=== PATIENT | male | born 1940 | race Caucasian/White ===

== ENCOUNTER 2018-02-11 11:30 | Outpatient (RCR) | payer OTHER, SELFPAY ==
[2017-10-16 11:02] VITALS: BP 188/74; BP 192/80; O2SAT 97; BMI 37.8
[2017-11-14 15:46] VITALS: BP 136/58
[2017-12-06 15:17] VITALS: BP 148/68
--- NOTE | 2018-01-10 15:48 | CR.REVALNOTE ---
Current Diagnoses Presence of prosthetic heart valve (01/10/18) Provider Summary Visit Care Team Role Provider Type Gabriele Nuno MD Family Provider Physician Specialty: Family Practice Address: [facility] [address], [place], [address] Email: Aries Velarde DO Attending Provider Non-Staff Specialty: Cardiology Address: [facility] [address], [place], [address] Email: CR Re-Evaluation Report 01.10.18 CFS- Today is Flynn's first day back after a month long vacation to [place]. States he wasn't able to do a whole lot of exercise as he was mainly there to help his sister out. Would like to keep the exercise Rx the same as last assessment since he hasn't been here since the last assessment. Equipment Goals TM 6.0 NS 6.0 weights Number/Value n/a LVL lvl 5 teal Progress to Goal increase as tolerated CFS-CEP CR Cardiac Rehab Re-Assessment Start: 10/16/17 11:02 Freq: Status: Active Protocol: Document 11/08/17 12:20 SHEREE (Rec: 11/08/17 12:23 SHEREE [id number]) CARDIAC REHAB EXERCISE RISK RE-EVAL Dx: TAVR 09/25/17 Risk Moderate Heart Rhythm SR 1ST DEGREE AVB CARDIAC REHAB NUTRITION RE-EVAL Lipids Re-Drawn No History of Diabetes Yes Oral Agents ACTOS Monitored Blood Glucose No Progress to Weight Goal HAS NO WEIGHT GOAL Dietary Goal verbalized by Patient Yes: HAS NO GOAL, NOT GOING TO CHANGE DIET EDUCATION Tobacco Use N/A Hypertension 136/58 PRE Medications LISINOPRIL 5MG QD Progress to Goal IS HAPPY WITH SELF. NOT AT GOAL PRE-EXERCISE BUT BETTER THAN ON INTAKE Medication Reconciled NO CHANGES REPORTED CR PSYCHOSOCIAL RE-EVALUATION Progress to Goal IS HAPPY WITH SELF. IS HERE BECAUSE HIS DOCTOR TOLD HIM TO Stress Managed PER PT, YES Psych Consult No Coping Techniques Yes Note NO CHANGES CR PSYCHOSOCIAL PROVIDER EVAL Treatment Prescribed for Individual Yes Needs No Treatment Change Yes: Please Continue with Cardiopulmonary Rehabilitation as Ordered Date 11/08/17 Document 11/14/17 15:46 CFS (Rec: 11/14/17 15:59 CFS [id number]) CARDIAC REHAB EXERCISE RISK RE-EVAL Left Arm Blood Pressure (90/60-140/90 mmHg) 136/58 L Blood Pressure Method Manual Cuff/Auscultation Apical Resting Heart Rate: 73 Target Heart Rate: 110 Angina with Exercise no CR LIFESTYLE RE-ASSESSMENT Home Exercise Yes Mode Comment walking Duration Comment 20-25 min Frequency Comment daily ACHIEVED EXERCISE RE-EVALUATION Nustep MET Goal 4.27 Treadmill MET Goal 4.98 RPE n/a Weights n/a Bands lvl 4 Equipment Goals TM 6.0 NS 6.0 Number/Value n/a LVL lvl 5 teal Progress to Goal increase as tolerated % Improvement TM 32% Short Term has no problem exercising for 40 min continuously. Has not achieved 6+ METs but will continue to push him to increase METs (incline on TM and speed on NS). 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 We will give it a few more sessions before really pushing to see high METs. He has started helping set up large tents but has not used the sledge hammer to help drive stakes in. Document 12/06/17 15:17 [facility] (Rec: 12/06/17 15:25 [facility] [id number]) CARDIAC REHAB EXERCISE RISK RE-EVAL Dx: TAVR 7.31.18 Risk Moderate Heart Rhythm NSR W/1ST DEGREE AVB Right Arm Blood Pressure (90/60-140/90 mmHg) 148/68 H Apical Resting Heart Rate: 69 CARDIAC REHAB NUTRITION RE-EVAL Lipids Re-Drawn No History of Diabetes Yes Oral Agents ACTOS Monitored Blood Glucose No Progress to Weight Goal HAS NOT PROGRESSED Dietary Consult Yes EDUCATION Hypertension 148/68 PRE 128/62 POST Medications LISINOPRIL Progress to Goal HIGH ON MEDS CR PSYCHOSOCIAL RE-EVALUATION Progress to Goal COMES IN 1X/WEEK AND SEEMS SATISFIED WITH HIS PROGRESS Psych Consult No Coping Techniques Yes Note NO CHANGES CR PSYCHOSOCIAL PROVIDER EVAL Treatment Prescribed for Individual Yes Needs No Treatment Change Yes: Please Continue with Cardiopulmonary Rehabilitation as Ordered Date 12/06/17 Document 12/06/17 15:31 CFS (Rec: 12/06/17 15:34 CFS [id number]) CARDIAC REHAB EXERCISE RISK RE-EVAL Angina with Exercise none CR LIFESTYLE RE-ASSESSMENT Home Exercise Yes Mode Comment walking Duration Comment 20-25 min Frequency Comment daily ACHIEVED EXERCISE RE-EVALUATION BioDex MET Goal 3.37 Nustep MET Goal 5.19 Treadmill MET Goal 5.86 RPE 14-15 Weights n/a Bands lvl 5 Equipment Goals TM 6.75 NS 6.25 BD 4.50 Number/Value N/A LVL Lvl 6 Progress to Goal increase as tolerated % Improvement TM 18% NS 22% Short Term has no problem exercising for 40 min continuously. Has not achieved 6+ METs but will continue to push him to increase METs (incline on TM and speed on NS). Half-Way Has not come close to PATINO score of 9.89. We will give it a few more sessions before really pushing to see high METs. He has started helping set up large tents but has not used the sledge hammer to help drive stakes in. CR Education Start: 10/16/17 11:02 Freq: Status: Active Protocol: Document 11/15/17 14:49 TOD (Rec: 11/15/17 14:49 [facility] [id number]) CR EDUCATION Education discussed hiit exercising and working up to this at home Document 12/06/17 11:59 BAR (Rec: 12/06/17 11:59 [facility] [id number]) CR EDUCATION Education reviewed medications
[2018-02-14 07:51] VITALS: BP 148/60
== END 2018-02-21 09:43 ==
LOC: CAR 11:30
PROVIDERS: Family Provider Family Medicine; Visit Provider Internal Medicine Interventional Cardiology
DX: Z95.2 Presence of prosthetic heart valve (principal)
CPT/HCPCS: 93798

== ENCOUNTER → 2020-08-25 11:09 | Outpatient (CLI) | payer MEDICARE, SELFPAY | PROVIDERS: Family Provider Family Medicine; PCP Family Medicine; Referring Provider Orthopaedic Surgery; Visit Provider Orthopaedic Surgery | DX: M79.644 Pain in right finger(s) (principal); Z53.8 Procedure and treatment not carried out for other reasons ==

== ENCOUNTER → 2021-01-17 11:28 | Outpatient (CLI) | payer MEDICARE, SELFPAY ==
[2021-01-17 19:51] LABS: Add Manual Diff / Slide Review NO; Basophils Absolute Auto 0 /uL (0-100); Basophils Percent Auto 0.7 % (0-2); Eosinophils Absolute Auto 200 /uL (0-450); Eosinophils Percent Auto 4.3 % (2-4); Hematocrit 29.6 % (41-53); Hemoglobin 9.8 g/dL (13.5-17.5); Lymphocytes Absolute Auto 1100 /uL (1100-4500); Lymphocytes Percent Auto 29.3 % (25-40); Mean Corpuscular HGB Conc 33.1 % (30-36); Mean Corpuscular Hemoglobin 32.5 PG (26-34); Mean Corpuscular Volume 98.3 fL (80-100); Monocytes Absolute Auto 400 /uL (0-900); Neutrophils Absolute Auto 2200 /uL (1500-7000); Neutrophils Percent Auto 55.7 % (50-75); Platelet Count 179 X10^3/uL (150-400); Red Blood Cell Count 3.01 X10^6/uL (4.5-5.9); Red Cell Distribution Width 14.6 % (11.6-14.8); White Blood Cell Count 3.9 X10^3/uL (4.5-11.0)
[2021-01-17 20:19] LABS: HEMOLYSIS < 15 (0-50); Iron 100 ug/dL (49-181)
[2021-01-17 20:24] LABS: Alanine Aminotransferase 21 IU/L (<50); Albumin 4.1 g/dL (3.5-5.0); Albumin Globulin Ratio 1.3 (1.0-2.8); Alkaline Phosphatase 76 U/L (38-126); Aspartate Aminotransferase 45 IU/L (17-59); BUN Creatinine Ratio 20.4 (6-22); Bilirubin Total 0.4 mg/dL (0.2-1.3); Blood Urea Nitrogen 19 mg/dL (9-20); Calcium 8.9 mg/dL (8.4-10.2); Carbon Dioxide 21 mmol/L (22-32); Chloride 107 mmol/L (98-107); Cholesterol 150 mg/dL (140-199); Estimated Glomerular Filt Rate > 60.0 mL/min (>60); Globulin 3.2 g/dL (1.7-4.1); Glucose 105 mg/dL (80-110); HDL Cholesterol 50 mg/dL (40-60); HEMOLYSIS < 15 (0-50); LDL Cholesterol Calculated 70 mg/dL (<100); Potassium 4.6 mmol/L (3.4-5.1); Sodium 137 mmol/L (137-145); Total Protein 7.3 g/dL (6.3-8.2); Triglycerides 151 mg/dL (35-150)
[2021-01-17 20:35] LABS: Percent Iron Saturation 34 % (20-50); Total Iron Binding Capacity 290 ug/dL (261-462); Transferrin 222 mg/dL (206-381)
[2021-01-17 20:59] LABS: Ferritin 85 ng/mL (18-464)
[2021-01-17 21:13] LABS: Vitamin B12 577 pg/mL (239-931)
== END ==
PROVIDERS: Family Provider Family Medicine; PCP Family Medicine; Referring Provider Family Medicine; Visit Provider Family Medicine
DX: D64.9 Anemia, unspecified (principal); E11.9 Type 2 diabetes mellitus without complications; E53.8 Deficiency of other specified B group vitamins; E66.01 Morbid (severe) obesity due to excess calories; E78.2 Mixed hyperlipidemia; I25.10 Atherosclerotic heart disease of native coronary artery without angina pectoris
CPT/HCPCS: 80053; 80061; 82607; 82728; 83036; 83540; 83550; 85025

== ENCOUNTER → 2021-04-28 08:08 | Outpatient (CLI) | payer MEDICARE, SELFPAY ==
[2021-04-28 20:23] LABS: Hemoglobin A1C% w Est Avg Glu 6.4 % (4.0-6.0)
[2021-04-28 20:32] LABS: Add Manual Diff / Slide Review NO; Basophils Absolute Auto 100 /uL (0-100); Eosinophils Absolute Auto 300 /uL (0-450); Eosinophils Percent Auto 6.3 % (2-4); Hematocrit 31.1 % (41-53); Hemoglobin 10.4 g/dL (13.5-17.5); Lymphocytes Absolute Auto 1200 /uL (1100-4500); Mean Corpuscular HGB Conc 33.3 % (30-36); Mean Corpuscular Hemoglobin 32.1 PG (26-34); Mean Corpuscular Volume 96.4 fL (80-100); Monocytes Absolute Auto 500 /uL (0-900); Monocytes Percent Auto 10.7 % (3-14); Neutrophils Absolute Auto 2800 /uL (1500-7000); Platelet Count 187 X10^3/uL (150-400); Red Blood Cell Count 3.22 X10^6/uL (4.5-5.9); Red Cell Distribution Width 13.7 % (11.6-14.8); White Blood Cell Count 4.9 X10^3/uL (4.5-11.0)
[2021-04-28 20:35] LABS: Alanine Aminotransferase 29 IU/L (<50); Albumin Globulin Ratio 1.2 (1.0-2.8); Alkaline Phosphatase 78 U/L (38-126); Aspartate Aminotransferase 39 IU/L (17-59); BUN Creatinine Ratio 19.4 (6-22); Bilirubin Total 0.4 mg/dL (0.2-1.3); Blood Urea Nitrogen 19 mg/dL (9-20); Carbon Dioxide 25 mmol/L (22-32); Chloride 109 mmol/L (98-107); Cholesterol 200 mg/dL (140-199); Estimated Glomerular Filt Rate > 60.0 mL/min (>60); Globulin 3.4 g/dL (1.7-4.1); Glucose 114 mg/dL (80-110); HDL Cholesterol 38 mg/dL (40-60); HEMOLYSIS < 15 (0-50); LDL Cholesterol Calculated 114 mg/dL (<100); Potassium 4.4 mmol/L (3.4-5.1); Sodium 138 mmol/L (137-145); Total Protein 7.4 g/dL (6.3-8.2); Triglycerides 240 mg/dL (35-150)
== END ==
PROVIDERS: Family Provider Family Medicine; PCP Family Medicine; Visit Provider Family Medicine
DX: D64.9 Anemia, unspecified (principal); E11.9 Type 2 diabetes mellitus without complications; E78.5 Hyperlipidemia, unspecified; I25.10 Atherosclerotic heart disease of native coronary artery without angina pectoris
CPT/HCPCS: 80053; 80061; 83036; 85025

== ENCOUNTER → 2021-09-27 09:13 | Outpatient (CLI) | payer MEDICARE, SELFPAY ==
[2021-09-27 20:25] LABS: HEMOLYSIS < 15 (0-50); Iron 101 ug/dL (49-181)
[2021-09-27 20:30] LABS: Hemoglobin A1C% w Est Avg Glu 6.4 % (4.0-6.0)
[2021-09-27 20:40] LABS: Percent Iron Saturation 36 % (20-50); Total Iron Binding Capacity 281 ug/dL (261-462); Transferrin 211 mg/dL (206-381)
[2021-09-28 01:00] LABS: Alanine Aminotransferase 21 IU/L (<50); Albumin 3.8 g/dL (3.5-5.0); Albumin Globulin Ratio 1.2 (1.0-2.8); Alkaline Phosphatase 77 U/L (38-126); Aspartate Aminotransferase 32 IU/L (17-59); BUN Creatinine Ratio 21.9 (6-22); Bilirubin Total 0.3 mg/dL (0.2-1.3); Blood Urea Nitrogen 23 mg/dL (9-20); Calcium 8.6 mg/dL (8.4-10.2); Carbon Dioxide 20 mmol/L (22-32); Chloride 110 mmol/L (98-107); Cholesterol 184 mg/dL (140-199); Estimated Glomerular Filt Rate > 60 mL/min (>60); Globulin 3.1 g/dL (1.7-4.1); Glucose 107 mg/dL (80-110); HDL Cholesterol 36 mg/dL (40-60); HEMOLYSIS < 15 (0-50); LDL Cholesterol Calculated 95 mg/dL (<100); Potassium 5.1 mmol/L (3.4-5.1); Sodium 138 mmol/L (137-145); Total Protein 6.9 g/dL (6.3-8.2); Triglycerides 266 mg/dL (35-150)
[2021-09-28 01:48] LABS: Vitamin B12 > 1000 pg/mL (239-931)
[2021-09-28 02:51] LABS: Free T4, Direct Thyroxine 0.77 ng/dL (0.78-2.19)
== END ==
PROVIDERS: Family Provider Family Medicine; PCP Family Medicine; Visit Provider Family Medicine
DX: E11.9 Type 2 diabetes mellitus without complications (principal); E78.2 Mixed hyperlipidemia; I25.10 Atherosclerotic heart disease of native coronary artery without angina pectoris
CPT/HCPCS: 80053; 80061; 82607; 83036; 83540; 83550; 84439; 84443

== ENCOUNTER → 2021-11-10 10:56 | Outpatient (CLI) | payer MEDICARE, SELFPAY ==
[2021-11-10 19:26] LABS: Alanine Aminotransferase 20 IU/L (<50); Albumin 3.7 g/dL (3.5-5.0); Albumin Globulin Ratio 1.2 (1.0-2.8); Alkaline Phosphatase 67 U/L (38-126); Aspartate Aminotransferase 31 IU/L (17-59); BUN Creatinine Ratio 23.9 (6-22); Bilirubin Total 0.3 mg/dL (0.2-1.3); Blood Urea Nitrogen 22 mg/dL (9-20); Calcium 8.9 mg/dL (8.4-10.2); Carbon Dioxide 23 mmol/L (22-32); Chloride 107 mmol/L (98-107); Estimated Glomerular Filt Rate > 60 mL/min (>60); Globulin 3.1 g/dL (1.7-4.1); Glucose 93 mg/dL (80-110); HEMOLYSIS < 15 (0-50); Sodium 140 mmol/L (137-145); Total Protein 6.8 g/dL (6.3-8.2)
[2021-11-10 19:58] LABS: Free T4, Direct Thyroxine 0.96 ng/dL (0.78-2.19)
[2021-11-10 20:12] LABS: Thyroid Stimulating Hormone 4.47 uIU/mL (0.47-4.68)
== END ==
PROVIDERS: Family Provider Family Medicine; PCP Family Medicine; Visit Provider Family Medicine
DX: E03.9 Hypothyroidism, unspecified (principal)
CPT/HCPCS: 80053; 84439; 84443

== ENCOUNTER → 2021-12-21 09:00 | Outpatient (CLI) | payer MEDICARE, SELFPAY ==
[2021-12-21 19:27] LABS: Add Manual Diff / Slide Review NO; Alanine Aminotransferase 27 IU/L (<50); Albumin Globulin Ratio 1.3 (1.0-2.8); Alkaline Phosphatase 75 U/L (38-126); Aspartate Aminotransferase 38 IU/L (17-59); BUN Creatinine Ratio 25.5 (6-22); Basophils Absolute Auto 0 /uL (0-100); Basophils Percent Auto 0.8 % (0-2); Bilirubin Total 0.3 mg/dL (0.2-1.3); Blood Urea Nitrogen 26 mg/dL (9-20); Calcium 8.9 mg/dL (8.4-10.2); Carbon Dioxide 24 mmol/L (22-32); Chloride 105 mmol/L (98-107); Cholesterol 120 mg/dL (140-199); Eosinophils Absolute Auto 200 /uL (0-450); Eosinophils Percent Auto 4.8 % (2-4); Estimated Glomerular Filt Rate > 60 mL/min (>60); Globulin 3.1 g/dL (1.7-4.1); Glucose 105 mg/dL (80-110); HDL Cholesterol 40 mg/dL (40-60); HEMOLYSIS < 15 (0-50); Hematocrit 29.3 % (41-53); LDL Cholesterol Calculated 49 mg/dL (<100); Lymphocytes Absolute Auto 1200 /uL (1100-4500); Lymphocytes Percent Auto 32.8 % (25-40); Mean Corpuscular HGB Conc 34.1 % (30-36); Mean Corpuscular Hemoglobin 32.7 PG (26-34); Mean Corpuscular Volume 95.8 fL (80-100); Monocytes Absolute Auto 400 /uL (0-900); Neutrophils Absolute Auto 1900 /uL (1500-7000); Neutrophils Percent Auto 51.6 % (50-75); Platelet Count 173 X10^3/uL (150-400); Potassium 4.6 mmol/L (3.4-5.1); Red Blood Cell Count 3.06 X10^6/uL (4.5-5.9); Sodium 139 mmol/L (137-145); Total Protein 7.1 g/dL (6.3-8.2); Triglycerides 155 mg/dL (35-150); White Blood Cell Count 3.7 X10^3/uL (4.5-11.0)
[2021-12-21 19:37] LABS: Hemoglobin A1C% w Est Avg Glu 5.7 % (4.0-6.0)
== END ==
PROVIDERS: Family Provider Family Medicine; PCP Family Medicine; Visit Provider Family Medicine
DX: E78.2 Mixed hyperlipidemia (principal); I10 Essential (primary) hypertension; I45.89 Other specified conduction disorders
CPT/HCPCS: 80053; 80061; 83036; 85025

== ENCOUNTER → 2022-03-30 08:58 | Outpatient (CLI) | payer MEDICARE, SELFPAY ==
[2022-03-31 08:07] LABS: Add Manual Diff / Slide Review NO; Basophils Absolute Auto 0 /uL (0-100); Basophils Percent Auto 0.6 % (0-2); Eosinophils Absolute Auto 200 /uL (0-450); Eosinophils Percent Auto 4.8 % (2-4); Hematocrit 28.7 % (41-53); Hemoglobin 9.8 g/dL (13.5-17.5); Lymphocytes Absolute Auto 1100 /uL (1100-4500); Lymphocytes Percent Auto 27.8 % (25-40); Mean Corpuscular HGB Conc 34.1 % (30-36); Mean Corpuscular Hemoglobin 32.5 PG (26-34); Mean Corpuscular Volume 95.3 fL (80-100); Monocytes Absolute Auto 400 /uL (0-900); Monocytes Percent Auto 10.5 % (3-14); Neutrophils Absolute Auto 2200 /uL (1500-7000); Neutrophils Percent Auto 56.3 % (50-75); Platelet Count 176 X10^3/uL (150-400); Red Blood Cell Count 3.01 X10^6/uL (4.5-5.9); Red Cell Distribution Width 15.1 % (11.6-14.8); White Blood Cell Count 3.8 X10^3/uL (4.5-11.0)
[2022-03-31 08:09] LABS: Alanine Aminotransferase 27 IU/L (<50); Albumin 3.8 g/dL (3.5-5.0); Albumin Globulin Ratio 1.2 (1.0-2.8); Alkaline Phosphatase 78 U/L (38-126); Aspartate Aminotransferase 39 IU/L (17-59); BUN Creatinine Ratio 24.7 (6-22); Bilirubin Total 0.5 mg/dL (0.2-1.3); Blood Urea Nitrogen 22 mg/dL (9-20); Calcium 8.6 mg/dL (8.4-10.2); Carbon Dioxide 22 mmol/L (22-32); Chloride 106 mmol/L (98-107); Estimated Glomerular Filt Rate > 60 mL/min (>60); Globulin 3.3 g/dL (1.7-4.1); Glucose 106 mg/dL (80-110); Potassium 4.5 mmol/L (3.4-5.1); Sodium 137 mmol/L (137-145); Total Protein 7.1 g/dL (6.3-8.2)
[2022-03-31 08:10] LABS: HEMOLYSIS < 15 (0-50); Iron 99 ug/dL (49-181)
[2022-03-31 08:20] LABS: Percent Iron Saturation 36 % (20-50); Total Iron Binding Capacity 275 ug/dL (261-462); Transferrin 197 mg/dL (206-381)
[2022-03-31 08:24] LABS: Free T4, Direct Thyroxine 0.89 ng/dL (0.78-2.19)
[2022-03-31 08:38] LABS: Thyroid Stimulating Hormone 7.69 uIU/mL (0.47-4.68)
[2022-03-31 12:14] LABS: HEMOLYSIS < 15 (0-50); Vitamin B12 > 1000 pg/mL (239-931)
== END ==
PROVIDERS: Family Provider Family Medicine; PCP Family Medicine; Visit Provider Family Medicine
DX: D64.9 Anemia, unspecified (principal); E03.9 Hypothyroidism, unspecified; E53.8 Deficiency of other specified B group vitamins; E78.5 Hyperlipidemia, unspecified; I10 Essential (primary) hypertension; I25.10 Atherosclerotic heart disease of native coronary artery without angina pectoris; Z79.02 Long term (current) use of antithrombotics/antiplatelets
CPT/HCPCS: 80053; 82607; 83540; 83550; 84439; 84443; 85025

== ENCOUNTER → 2022-08-21 10:26 | Outpatient (CLI) | payer MEDICARE, SELFPAY ==
[2022-08-21 19:33] LABS: Add Manual Diff / Slide Review NO; Basophils Absolute Auto 0 /uL (0-100); Basophils Percent Auto 0.9 % (0-2); Eosinophils Absolute Auto 100 /uL (0-450); Eosinophils Percent Auto 3.5 % (2-4); Hematocrit 28.1 % (41-53); Hemoglobin 9.6 g/dL (13.5-17.5); Lymphocytes Absolute Auto 1100 /uL (1100-4500); Lymphocytes Percent Auto 30.9 % (25-40); Mean Corpuscular HGB Conc 34.2 % (30-36); Mean Corpuscular Hemoglobin 33.2 PG (26-34); Mean Corpuscular Volume 96.8 fL (80-100); Monocytes Absolute Auto 400 /uL (0-900); Monocytes Percent Auto 10.8 % (3-14); Neutrophils Absolute Auto 2000 /uL (1500-7000); Neutrophils Percent Auto 53.9 % (50-75); Platelet Count 174 X10^3/uL (150-400); Red Cell Distribution Width 14.1 % (11.6-14.8); White Blood Cell Count 3.7 X10^3/uL (4.5-11.0)
[2022-08-21 19:37] LABS: Alanine Aminotransferase 28 IU/L (<50); Albumin 3.8 g/dL (3.5-5.0); Albumin Globulin Ratio 1.2 (1.0-2.8); Alkaline Phosphatase 80 U/L (38-126); Aspartate Aminotransferase 37 IU/L (17-59); BUN Creatinine Ratio 25.6 (6-22); Bilirubin Total 0.4 mg/dL (0.2-1.3); Blood Urea Nitrogen 23 mg/dL (9-20); Calcium 8.6 mg/dL (8.4-10.2); Carbon Dioxide 23 mmol/L (22-32); Chloride 107 mmol/L (98-107); Cholesterol 181 mg/dL (140-199); Estimated Glomerular Filt Rate > 60 mL/min (>60); Globulin 3.1 g/dL (1.7-4.1); Glucose 111 mg/dL (80-110); HDL Cholesterol 44 mg/dL (40-60); HEMOLYSIS < 15 (0-50); LDL Cholesterol Calculated 96 mg/dL (<100); Potassium 4.7 mmol/L (3.4-5.1); Sodium 136 mmol/L (137-145); Total Protein 6.9 g/dL (6.3-8.2); Triglycerides 205 mg/dL (35-150)
[2022-08-21 19:51] LABS: Free T4, Direct Thyroxine 1.14 ng/dL (0.78-2.19)
[2022-08-21 20:06] LABS: Thyroid Stimulating Hormone 5.72 uIU/mL (0.47-4.68)
[2022-08-23 03:27] LABS: x Labcorp Estim. Avg Glu (eAG) 128 mg/dL (.); x Labcorp Hemoglobin A1c 6.1 % (4.8-5.6)
== END ==
PROVIDERS: Family Provider Family Medicine; PCP Family Medicine; Visit Provider Family Medicine
DX: E11.9 Type 2 diabetes mellitus without complications (principal); E53.8 Deficiency of other specified B group vitamins; E78.5 Hyperlipidemia, unspecified; I10 Essential (primary) hypertension; E03.9 Hypothyroidism, unspecified
CPT/HCPCS: 80053; 80061; 83036; 84439; 84443; 85025

== ENCOUNTER → 2023-01-03 10:47 | Outpatient (CLI) | payer MEDICARE, SELFPAY ==
[2023-01-03 19:46] LABS: Add Manual Diff / Slide Review NO; Basophils Absolute Auto 0 /uL (0-100); Basophils Percent Auto 0.7 % (0-2); Eosinophils Absolute Auto 200 /uL (0-450); Eosinophils Percent Auto 5.7 % (2-4); Hemoglobin 9.5 g/dL (13.5-17.5); Lymphocytes Absolute Auto 1200 /uL (1100-4500); Lymphocytes Percent Auto 29.5 % (25-40); Mean Corpuscular Hemoglobin 33.1 PG (26-34); Mean Corpuscular Volume 97.2 fL (80-100); Monocytes Absolute Auto 400 /uL (0-900); Monocytes Percent Auto 10.4 % (3-14); Neutrophils Absolute Auto 2100 /uL (1500-7000); Neutrophils Percent Auto 53.7 % (50-75); Platelet Count 201 X10^3/uL (150-400); Red Blood Cell Count 2.88 X10^6/uL (4.5-5.9); Red Cell Distribution Width 14.5 % (11.6-14.8)
[2023-01-03 19:56] LABS: Alanine Aminotransferase 74 IU/L (<50); Albumin 3.9 g/dL (3.5-5.0); Albumin Globulin Ratio 1.2 (1.0-2.8); Alkaline Phosphatase 222 U/L (38-126); Aspartate Aminotransferase 74 IU/L (17-59); BUN Creatinine Ratio 18.4 (6-22); Bilirubin Total 0.6 mg/dL (0.2-1.3); Blood Urea Nitrogen 16 mg/dL (9-20); Calcium 9.1 mg/dL (8.4-10.2); Carbon Dioxide 22 mmol/L (22-32); Chloride 106 mmol/L (98-107); Estimated Glomerular Filt Rate > 60 mL/min (>60); Globulin 3.3 g/dL (1.7-4.1); Glucose 106 mg/dL (80-110); HEMOLYSIS < 15 (0-50); Potassium 5.1 mmol/L (3.4-5.1); Total Protein 7.2 g/dL (6.3-8.2)
[2023-01-03 19:59] LABS: Creatinine Urine Random 81.2 mg/dL; Free T4, Direct Thyroxine 1.27 ng/dL (0.78-2.19)
[2023-01-03 20:00] LABS: Hemoglobin A1C% w Est Avg Glu 6.2 % (4.0-6.0)
[2023-01-03 20:03] LABS: Microalbumi Creatinin Ratio Ur 41.8 ug/mg CR (<30); Microalbumin Urine Random 3.4 mg/dL (0-1.6)
[2023-01-03 20:12] LABS: Sodium 136 mmol/L (137-145)
[2023-01-03 20:14] LABS: Thyroid Stimulating Hormone 7.75 uIU/mL (0.47-4.68)
== END ==
PROVIDERS: Family Provider Family Medicine; PCP Family Medicine; Visit Provider Family Medicine
DX: I10 Essential (primary) hypertension (principal); E11.9 Type 2 diabetes mellitus without complications; E03.9 Hypothyroidism, unspecified; E78.5 Hyperlipidemia, unspecified
CPT/HCPCS: 80053; 82043; 82570; 83036; 84439; 84443; 85025

== ENCOUNTER → 2023-01-11 10:34 | Outpatient (CLI) | payer MEDICARE, SELFPAY ==
[2023-01-11 19:19] LABS: Reticulocyte Count, Percent 0.4 % (0.9-2.6)
[2023-01-11 19:24] LABS: Alanine Aminotransferase 66 IU/L (<50); Albumin Globulin Ratio 1.2 (1.0-2.8); Alkaline Phosphatase 185 U/L (38-126); Aspartate Aminotransferase 69 IU/L (17-59); BUN Creatinine Ratio 23.6 (6-22); Bilirubin Total 0.6 mg/dL (0.2-1.3); Blood Urea Nitrogen 21 mg/dL (9-20); Calcium 9.1 mg/dL (8.4-10.2); Carbon Dioxide 20 mmol/L (22-32); Chloride 108 mmol/L (98-107); Estimated Glomerular Filt Rate > 60 mL/min (>60); Globulin 3.3 g/dL (1.7-4.1); Glucose 210 mg/dL (80-110); HEMOLYSIS < 15 (0-50); Lipase 179 U/L (23-300); Potassium 4.7 mmol/L (3.4-5.1); Sodium 140 mmol/L (137-145); Total Protein 7.3 g/dL (6.3-8.2)
[2023-01-11 20:06] LABS: Hep C Virus Ab w/Reflex Quant NEGATIVE s/c (NEGATIVE)
== END ==
PROVIDERS: Family Provider Family Medicine; PCP Family Medicine; Visit Provider Family Medicine
DX: E11.9 Type 2 diabetes mellitus without complications (principal); D64.9 Anemia, unspecified; R79.89 Other specified abnormal findings of blood chemistry
CPT/HCPCS: 80053; 83690; 85045; 86803

== ENCOUNTER → 2023-08-29 07:29 | Outpatient (CLI) | payer MEDICARE, SELFPAY ==
[2023-08-29 08:05] LABS: HEMOLYSIS < 15 (0-50)
[2023-08-29 08:10] LABS: HEMOLYSIS < 15 (0-50); Iron 96 ug/dL (49-181)
[2023-08-29 08:11] LABS: Alanine Aminotransferase 33 IU/L (<50); Albumin 3.6 g/dL (3.5-5.0); Albumin Globulin Ratio 1.2 (1.0-2.8); Alkaline Phosphatase 73 U/L (38-126); Aspartate Aminotransferase 45 IU/L (17-59); BUN Creatinine Ratio 19.6 (6-22); Bilirubin Total 0.4 mg/dL (0.2-1.3); Blood Urea Nitrogen 20 mg/dL (9-20); Calcium 8.5 mg/dL (8.4-10.2); Carbon Dioxide 22 mmol/L (22-32); Chloride 112 mmol/L (98-107); Estimated Glomerular Filt Rate > 60 mL/min (>60); Glucose 91 mg/dL (80-110); Potassium 4.7 mmol/L (3.4-5.1); Sodium 138 mmol/L (137-145); Total Protein 6.6 g/dL (6.3-8.2)
[2023-08-29 08:22] LABS: Percent Iron Saturation 37 % (20-50); Total Iron Binding Capacity 260 ug/dL (261-462); Transferrin 199 mg/dL (206-381)
[2023-08-29 08:28] LABS: Free T4, Direct Thyroxine 0.93 ng/dL (0.78-2.19)
[2023-08-29 08:42] LABS: Thyroid Stimulating Hormone 4.93 uIU/mL (0.47-4.68)
[2023-08-29 08:46] LABS: Ferritin 343 ng/mL (18-464)
[2023-08-29 08:49] LABS: Creatinine Urine Random 111.26 mg/dL
[2023-08-29 08:55] LABS: Microalbumin Urine Random 3.8 mg/dL (0-1.6)
[2023-08-29 09:00] LABS: Vitamin B12 Reflex MMA if <400 > 1000 pg/mL (239-931)
[2023-08-29 09:46] LABS: Add Manual Diff / Slide Review NO; Basophils Absolute Auto 0 /uL (0-100); Basophils Percent Auto 0.6 % (0-2); Eosinophils Absolute Auto 100 /uL (0-450); Eosinophils Percent Auto 4.1 % (2-4); Hematocrit 25.2 % (41-53); Hemoglobin 8.6 g/dL (13.5-17.5); Lymphocytes Absolute Auto 1200 /uL (1100-4500); Lymphocytes Percent Auto 35.1 % (25-40); Mean Corpuscular Hemoglobin 33.1 PG (26-34); Mean Corpuscular Volume 97.4 fL (80-100); Monocytes Absolute Auto 400 /uL (0-900); Monocytes Percent Auto 11.7 % (3-14); Neutrophils Absolute Auto 1600 /uL (1500-7000); Neutrophils Percent Auto 48.5 % (50-75); Platelet Count 156 X10^3/uL (150-400); Red Blood Cell Count 2.58 X10^6/uL (4.5-5.9); Red Cell Distribution Width 13.5 % (11.6-14.8); White Blood Cell Count 3.3 X10^3/uL (4.5-11.0)
[2023-08-29 09:50] LABS: Hemoglobin A1C% w Est Avg Glu 5.8 % (4.0-6.0)
== END ==
PROVIDERS: Family Provider Family Medicine; PCP Family Medicine; Referring Provider Nurse Practitioner; Visit Provider Nurse Practitioner
DX: D64.9 Anemia, unspecified (principal); E11.9 Type 2 diabetes mellitus without complications; D50.8 Other iron deficiency anemias; I10 Essential (primary) hypertension; E53.8 Deficiency of other specified B group vitamins
CPT/HCPCS: 36415; 80053; 82043; 82570; 82607; 82728; 83036; 83540; 83550; 84439; 84443; 85025

== ENCOUNTER → 2023-10-04 11:05 | Outpatient (CLI) | payer MEDICARE, SELFPAY ==
[2023-10-04 12:28] LABS: Add Manual Diff / Slide Review NO; Basophils Absolute Auto 0 /uL (0-100); Basophils Percent Auto 0.9 % (0-2); Eosinophils Absolute Auto 100 /uL (0-450); Eosinophils Percent Auto 3.1 % (2-4); Hematocrit 25.2 % (41-53); Hemoglobin 8.6 g/dL (13.5-17.5); Lymphocytes Absolute Auto 1100 /uL (1100-4500); Lymphocytes Percent Auto 39.9 % (25-40); Mean Corpuscular HGB Conc 34.1 % (30-36); Mean Corpuscular Hemoglobin 33.4 PG (26-34); Mean Corpuscular Volume 97.9 fL (80-100); Monocytes Absolute Auto 300 /uL (0-900); Monocytes Percent Auto 10.8 % (3-14); Neutrophils Absolute Auto 1300 /uL (1500-7000); Neutrophils Percent Auto 45.3 % (50-75); Platelet Count 165 X10^3/uL (150-400); Red Blood Cell Count 2.57 X10^6/uL (4.5-5.9); Red Cell Distribution Width 14.3 % (11.6-14.8); White Blood Cell Count 2.8 X10^3/uL (4.5-11.0)
[2023-10-04 12:31] LABS: Reticulocyte Count, Percent 0.4 % (0.9-2.6)
== END ==
PROVIDERS: Family Provider Family Medicine; PCP Family Medicine; Referring Provider Family Medicine; Visit Provider Family Medicine
DX: D64.9 Anemia, unspecified (principal); I10 Essential (primary) hypertension; E78.5 Hyperlipidemia, unspecified; E11.9 Type 2 diabetes mellitus without complications
CPT/HCPCS: 36415; 82668; 85025; 85045

== ENCOUNTER → 2024-01-31 11:26 | Outpatient (CLI) | payer MEDICARE, SELFPAY ==
[2024-01-31 20:02] LABS: Add Manual Diff / Slide Review NO; Basophils Absolute Auto 0 /uL (0-100); Basophils Percent Auto 0.6 % (0-2); Eosinophils Absolute Auto 200 /uL (0-450); Eosinophils Percent Auto 5.3 % (2-4); Hematocrit 26.6 % (41-53); Hemoglobin 8.9 g/dL (13.5-17.5); Lymphocytes Absolute Auto 1000 /uL (1100-4500); Lymphocytes Percent Auto 30.6 % (25-40); Mean Corpuscular HGB Conc 33.5 % (30-36); Mean Corpuscular Hemoglobin 33.3 PG (26-34); Mean Corpuscular Volume 99.4 fL (80-100); Monocytes Absolute Auto 400 /uL (0-900); Monocytes Percent Auto 10.8 % (3-14); Neutrophils Absolute Auto 1800 /uL (1500-7000); Neutrophils Percent Auto 52.7 % (50-75); Platelet Count 160 X10^3/uL (150-400); Red Blood Cell Count 2.68 X10^6/uL (4.5-5.9); Red Cell Distribution Width 14.3 % (11.6-14.8); White Blood Cell Count 3.4 X10^3/uL (4.5-11.0)
[2024-01-31 20:10] LABS: Hemoglobin A1C% w Est Avg Glu 5.6 % (4.0-6.0)
[2024-01-31 20:37] LABS: Free T4, Direct Thyroxine 0.82 ng/dL (0.78-2.19)
[2024-01-31 20:50] LABS: Thyroid Stimulating Hormone 5.74 uIU/mL (0.47-4.68)
== END ==
PROVIDERS: Family Provider Family Medicine; PCP Family Medicine; Visit Provider Family Medicine
DX: E03.9 Hypothyroidism, unspecified (principal); D64.9 Anemia, unspecified; E11.9 Type 2 diabetes mellitus without complications
CPT/HCPCS: 83036; 84439; 84443; 85025

== ENCOUNTER → 2024-02-22 10:17 | Outpatient (CLI) | payer MEDICARE, SELFPAY ==
[2024-02-22 19:49] LABS: Add Manual Diff / Slide Review NO; Basophils Absolute Auto 0 /uL (0-100); Basophils Percent Auto 0.9 % (0-2); Eosinophils Absolute Auto 200 /uL (0-450); Eosinophils Percent Auto 5.3 % (2-4); Hematocrit 25.6 % (41-53); Hemoglobin 8.6 g/dL (13.5-17.5); Lymphocytes Absolute Auto 1100 /uL (1100-4500); Lymphocytes Percent Auto 32.2 % (25-40); Mean Corpuscular HGB Conc 33.6 % (30-36); Mean Corpuscular Hemoglobin 33.1 PG (26-34); Mean Corpuscular Volume 98.5 fL (80-100); Monocytes Absolute Auto 300 /uL (0-900); Monocytes Percent Auto 9.4 % (3-14); Neutrophils Absolute Auto 1800 /uL (1500-7000); Neutrophils Percent Auto 52.2 % (50-75); Platelet Count 192 X10^3/uL (150-400); Red Cell Distribution Width 14.5 % (11.6-14.8); White Blood Cell Count 3.4 X10^3/uL (4.5-11.0)
[2024-02-22 19:58] LABS: Alanine Aminotransferase 37 IU/L (<50); Albumin 3.4 g/dL (3.5-5.0); Albumin Globulin Ratio 1.2 (1.0-2.8); Alkaline Phosphatase 92 U/L (38-126); Aspartate Aminotransferase 51 IU/L (17-59); BUN Creatinine Ratio 26.5 (6-22); Bilirubin Total 0.3 mg/dL (0.2-1.3); Blood Urea Nitrogen 27 mg/dL (9-20); C-Reactive Protein Quant < 0.5 mg/dL (<1.0); Calcium 8.3 mg/dL (8.4-10.2); Carbon Dioxide 18 mmol/L (22-32); Chloride 110 mmol/L (98-107); Estimated Glomerular Filt Rate > 60 mL/min (>60); Globulin 2.9 g/dL (1.7-4.1); Glucose 125 mg/dL (80-110); HEMOLYSIS < 15 (0-50); Potassium 4.8 mmol/L (3.4-5.1); Sodium 135 mmol/L (137-145); Total Protein 6.3 g/dL (6.3-8.2)
[2024-02-22 20:30] LABS: Ferritin 369 ng/mL (18-464)
[2024-02-22 20:38] LABS: HEMOLYSIS < 15 (0-50); Iron 115 ug/dL (49-181)
[2024-02-22 20:45] LABS: Vitamin B12 Reflex MMA if <400 870 pg/mL (239-931)
[2024-02-22 20:49] LABS: Percent Iron Saturation 50 % (20-50); Total Iron Binding Capacity 231 ug/dL (261-462); Transferrin 188 mg/dL (206-381)
[2024-02-22 20:50] LABS: Erythrocyte Sedimentation Rate 45 MM/HR (0-15)
[2024-02-22 20:56] LABS: Free T4, Direct Thyroxine 1.14 ng/dL (0.78-2.19)
[2024-02-22 21:10] LABS: Thyroid Stimulating Hormone 5.25 uIU/mL (0.47-4.68)
[2024-02-24 08:07] LABS: Ceruloplasmin 13.6 mg/dL (16.0-31.0)
== END ==
PROVIDERS: Family Provider Family Medicine; PCP Family Medicine; Visit Provider Nurse Practitioner
DX: Z09 Encounter for follow-up examination after completed treatment for conditions other than malignant neoplasm (principal); D64.9 Anemia, unspecified; E53.8 Deficiency of other specified B group vitamins; Z98.84 Bariatric surgery status
CPT/HCPCS: 80053; 82390; 82525; 82607; 82728; 83540; 83550; 84439; 84443; 85025; 85651; 86140

== ENCOUNTER → 2024-05-13 09:42 | Outpatient (CLI) | payer MEDICARE, SELFPAY | PROVIDERS: Family Provider Family Medicine; PCP Family Medicine; Visit Provider Physician Assistant | DX: A68.9 Relapsing fever, unspecified (principal); R53.83 Other fatigue; R63.0 Anorexia; R39.89 Other symptoms and signs involving the genitourinary system | CPT/HCPCS: 87077; 87086; 87186 ==

== ENCOUNTER 2024-07-08 20:41 | Emergency (ER) | payer MEDICARE, SELFPAY ==
[2024-07-08 20:50] VITALS: BP 165/77; PULSE 83; RESP 16; TEMP 36.1; O2SAT 100; BMI 31.1
[2024-07-08 20:51] VITALS: BP 165/77; PULSE 82; O2SAT 99
[2024-07-08 21:00] VITALS: BP 141/70; PULSE 58; O2SAT 100
--- NOTE | 2024-07-08 21:00 | DI.RAD.S_ITS ---
PROCEDURE: XR ELBOW LT MIN 3V INDICATIONS: pt fell on left arm with increased swelling to left elbow. TECHNIQUE: 3 views of the elbow were acquired. COMPARISON: None. FINDINGS: Bones: No fractures or dislocations. Well-defined proximal olecranon enthesophyte formation near triceps tendon insertion is seen. No suspicious bony lesions. Soft tissues: No elbow joint effusion. Significant soft tissue swelling over dorsal aspect of olecranon. No suspicious soft tissue calcifications. IMPRESSION: 1. No acute elbow fracture or dislocation. No significant joint effusion. 2. Well-defined enthesophyte formation involving dorsal aspect of proximal olecranon near triceps tendon insertion. Significant soft tissue swelling over olecranon concerning for olecranon bursitis. Dictated by: Johnny Griffiths M.D. on 07/08/2024 at 21:24 Approved by: Johnny Griffiths M.D. on 07/08/2024 at 21:25
--- NOTE | 2024-07-08 21:13 | ED_ITS ---
HPI - Fall General Chief Complaint: Fall Stated Complaint: fell off porch, lt elbow / arm injury Time Seen by Provider: 07/08/24 21:13 Source: patient Mode of arrival: Ambulatory History of Present Illness HPI Narrative: 84-year-old male past medical history of hyperlipidemia hypertension hypothyroidism comes into the ED from home for evaluation of swelling to the left elbow/ arm according to the patient he had a mechanical trip and fall earlier today, states that his prosthetic leg tripped on a door frame causing him to fall down proximally 2 steps landed on his left side but denies head strike or LOC. States that he landed directly on his elbow states that he had no pain initially however states that he noticed some increased swelling therefore decided come into the ED for further evaluation treatment. Patient not on any blood thinners, he denies any other injuries or symptoms at this time. Related Data Home Medications Medication Instructions Recorded Confirmed aspirin 325 mg tablet 325 mg PO DAILY 06/23/20 05/13/24 magnesium oxide 400 mg PO DAILY 06/23/20 05/13/24 omega-3 fatty acids 1,250 mg 1,250 mg PO DAILY 06/23/20 05/13/24 capsule amoxicillin 500 mg capsule 2,000 mg PO ONCE 04/01/24 05/13/24 cholecalciferol (vitamin D3) 50 50 mcg PO DAILY 04/01/24 05/13/24 mcg (2,000 unit) capsule ferrous sulfate 325 mg (65 mg 325 mg PO DAILY 04/01/24 05/13/24 iron) tablet (iron) multivitamin 1 tab PO DAILY 04/01/24 05/13/24 valsartan 40 mg tablet 40 mg PO DAILY 04/01/24 05/13/24 Previous Rx's Medication Instructions Recorded syringe-needle,safety,disp unt 3 #100 ea 10/13/20 mL,safety needle 25 gauge x 1, self-contained disposal unit clopidogrel 75 mg tablet See Rx Instructions .Route 03/28/24 .COMPLEX #90 tabs metformin 500 mg tablet 500 mg PO DAILY #90 tabs 03/28/24 carvedilol 6.25 mg tablet 6.25 mg PO BID #180 tabs 04/01/24 levothyroxine 125 mcg tablet 125 mcg PO DAILY #90 tabs 04/04/24 rosuvastatin 20 mg tablet 20 mg PO DAILY #90 tabs 05/21/24 cyanocobalamin (vitamin B-12) 1,000 mcg IM Q2W #6 mL 07/08/24 1,000 mcg/mL injection solution Allergies Allergy/AdvReac Type Severity Reaction Status Date / Time No Known Drug Allergies Allergy Verified 05/13/24 09:36 Review of Systems Review of Systems Narrative: General: Denies fever, chills, weight loss HEENT: Denies headache, eye drainage, eye irritation, head trauma, sore throat, voice change Cardiovascular: Denies any chest pain, palpitations, tachycardia Respiratory: Denies any shortness of breath, cough, wheeze, stridor GI/: Denies any abdominal pain, nausea, vomiting, diarrhea, bright red blood per rectum, melanotic stools, urinary frequency, urinary retention, dysuria, hematuria MSK: Positive left elbow swelling to the left elbow bursa, abrasions noted but no laceration neurovascularly intact upper extremity Skin: Denies any rashes, lesions, discoloration Neuro: Denies any headache, lightheadedness, dizziness, fainting, weakness Psych: Denies SI/HI Patient History Medical History (Updated 07/08/24 @ 21:36 by Wilfredo Howell DO) Prediabetes Elevated LFTs Anemia Squamous cell carcinoma Hypothyroidism Ischaemic rest pain of lower extremity Pes planus Popliteal artery aneurysm Hypertension Foot pain Measles Chicken pox B12 deficiency Hyperlipidemia Chronotropic incompetence LV dysfunction Systolic murmur PVC (premature ventricular contraction) Morbid obesity Platelet inhibition due to Plavix FLORES (dyspnea on exertion) Bleeding disorder Abnormal ECG Coronary atherosclerosis Surgical History Anesthesia History of gastric bypass History of cholecystectomy History of surgery (~1990) Heart valve problem (~2017) Pacemaker (~2018) H/O arterial bypass of lower limb Family History Father Cancer Mother History of heart disease Hypertension Hyperlipidemia Stroke Social History Smoking Status: Never smoker Smoking Status: Never smoker Exam Initial Vital Signs Initial Vital Signs: Vital Signs Temperature 97 F L 07/08/24 20:50 Pulse Rate 83 07/08/24 20:50 Respiratory Rate 16 07/08/24 20:50 Blood Pressure 165/77 H 07/08/24 20:50 Pulse Oximetry 100 07/08/24 20:50 Oxygen Delivery Method Room Air 07/08/24 20:50 Course Orders Ordered: ED Orders 07/08/24 21:00 XR elbow LT min 3V Stat Discontinued Medications Diphtheria/Tetanus/Acell Pertussis (Tet,Diph,Pertuss(Acell),Vac/Pf 0.5 Ml Syringe) 0.5 ml IM .ONCE ONE Stop: 07/08/24 21:23 Vital Signs Vital signs: Vital Signs - 8 hr 07/08/24 20:50 Temperature 97 F L Pulse Rate 83 Respiratory Rate 16 Blood Pressure 165/77 H Pulse Oximetry 100 Oxygen Delivery Method Room Air MDM - Fall Differential Diagnosis Differential diagnosis: Likely other ( abrasion, laceration, fracture, olecranon bursitis) Imaging Data Extremity x-ray #1: Radiologist's Impression: [address] [address] XRay Report Signed Patient: Chris Villalobos MR#: [id number] : 1940 Acct:[id number] Age/Sex: 84 / M Date of Service: 07/08/24 Loc: ED Accession Number: [id number] Procedure: XR elbow LT min 3V Ordering Provider: Wilfredo Howell D.O. PROCEDURE: XR ELBOW LT MIN 3V INDICATIONS: pt fell on left arm with increased swelling to left elbow. TECHNIQUE: 3 views of the elbow were acquired. COMPARISON: None. FINDINGS: Bones: No fractures or dislocations. Well-defined proximal olecranon enthesophyte formation near triceps tendon insertion is seen. No suspicious bony lesions. Soft tissues: No elbow joint effusion. Significant soft tissue swelling over dorsal aspect of olecranon. No suspicious soft tissue calcifications. IMPRESSION: 1. No acute elbow fracture or dislocation. No significant joint effusion. 2. Well-defined enthesophyte formation involving dorsal aspect of proximal olecranon near triceps tendon insertion. Significant soft tissue swelling over olecranon concerning for olecranon bursitis. [facility] Narrative Medical decision making narrative: 84-year-old male history of hypertension hyperlipidemia hypothyroidism presenting for swelling to his left elbow, had a mechanical trip and fall earlier today has no pain but noticed swelling to his elbow therefore decided come into the ED for further evaluation treatment, on evaluation patient with swelling to the olecranon bursa overlying abrasion but not actively bleeding full active and passive range of motion of the entire left upper extremity neurovascularly intact, patient had x-rays of his elbow performed here no acute fractures, consistent with most likely traumatic olecranon bursitis, patient was placed in a compression dressing instructed follow up with the PCP in outpatient setting he verbalized understanding of this agrees to being discharged home with outpatient follow up Discharge Plan Departure Patient Disposition: Home Clinical Impression: Bursitis, olecranon Instructions: DI for Elbow Bursitis Activity Restrictions/Additional Instructions: Please read the discharge instructions sheet carefully and bring all papers to all doctor follow-up visits, as it may contain information that your doctor may want to see. Disease processes change and evolve, if your symptoms worsen or if you develop any new symptoms that are concerning to you please return for evaluation. Your evaluation today does not show any evidence of any life- threatening/serious illnesses requiring admission to the hospital or surgery. Please follow-up with your doctor for re-evaluation in approximately 1 day. Seek immediate medical attention for any worrisome symptoms. *If you do not have a primary care provider please contact the [facility] Resource line at [phone]. They will ask some questions about your medical history and help get you set up with a doctor in the community. Prescriptions: No Action (DME) syringe-needle,safety,disp unt 3 mL 25 gauge x 1 syringe See Rx Instructions .ROUTE .MEDSUPPLY Qty: 100 0RF Rx Instructions: As directed clopidogrel 75 mg tablet See Rx Instructions .ROUTE .COMPLEX Qty: 90 3RF Dose Instruction: TAKE 1 TABLET DAILY Rx Instructions: TAKE 1 TABLET DAILY metformin 500 mg tablet 500 mg PO DAILY Qty: 90 3RF valsartan 40 mg tablet 40 mg PO DAILY amoxicillin 500 mg capsule 2,000 mg PO ONCE Rx Instructions: 4 tabs 30 min prior to procedure cholecalciferol (vitamin D3) 50 mcg (2,000 unit) capsule 50 mcg PO DAILY multivitamin Tablet 1 tab PO DAILY ferrous sulfate [iron] 325 mg (65 mg iron) tablet 325 mg PO DAILY carvedilol 6.25 mg tablet 6.25 mg PO BID Qty: 180 3RF levothyroxine 125 mcg tablet 125 mcg PO DAILY Qty: 90 3RF Rx Instructions: increased to 125 mcg cyanocobalamin (vitamin B-12) 1,000 mcg/mL solution 1,000 mcg IM Q2W Qty: 6 1RF Rx Instructions: Due for lab and appointment prior to additional refills rosuvastatin 20 mg tablet 20 mg PO DAILY Qty: 90 3RF omega-3 fatty acids 1,250 mg capsule 1,250 mg PO DAILY magnesium oxide 400 mg magnesium tablet 400 mg PO DAILY aspirin 325 mg tablet 325 mg PO DAILY Referrals: Yo Valenzuela DO [Primary Care Provider] - Stand Alone Forms: Patient Portal/API/Survey
[2024-07-08] MEDS: TET,DIPH,PERTUSS(ACELL),VAC/PF 0.5 ML SYRINGE IM (21:40)
== END 2024-07-08 21:43 | disposition home or self-care (01) ==
PROVIDERS: Emergency Provider Student in an Organized Health Care Education/Training Program; Family Provider Family Medicine; PCP Family Medicine
DX: M70.22 Olecranon bursitis, left elbow (principal); W01.0XXA Fall on same level from slipping, tripping and stumbling without subsequent striking against object, initial encounter; Z23 Encounter for immunization
CPT/HCPCS: 73080; 90471; 99283; 99284; 90715

== ENCOUNTER → 2024-12-24 13:06 | Outpatient (CLI) | payer MEDICARE, SELFPAY ==
[2024-12-24 18:48] LABS: Add Manual Diff / Slide Review NO; Hematocrit 22.2 % (41-53); Hemoglobin 7.4 g/dL (13.5-17.5); Lymphocytes Absolute Auto 1000 /uL (1100-4500); Mean Corpuscular HGB Conc 33.2 % (30-36); Mean Corpuscular Hemoglobin 33.1 PG (26-34); Mean Corpuscular Volume 99.7 fL (80-100); Platelet Count 150 X10^3/uL (150-400)
[2024-12-24 19:00] LABS: Hemoglobin A1C% w Est Avg Glu 5.1 % (4.0-6.0)
[2024-12-24 19:01] LABS: HEMOLYSIS < 15 (0-50); Iron 81 ug/dL (49-181)
[2024-12-24 19:11] LABS: Alanine Aminotransferase 41 IU/L (<50); Albumin 3.4 g/dL (3.5-5.0); Albumin Globulin Ratio 1.1 (1.0-2.8); Alkaline Phosphatase 93 U/L (38-126); Blood Urea Nitrogen 27 mg/dL (9-20); Calcium 8.5 mg/dL (8.4-10.2); Carbon Dioxide 20 mmol/L (22-32); Chloride 112 mmol/L (98-107); Estimated Glomerular Filt Rate 57 mL/min (>60); Globulin 3.0 g/dL (1.7-4.1); Glucose 98 mg/dL (70-99); HEMOLYSIS < 15 (0-50); Percent Iron Saturation 32 % (20-50); Sodium 137 mmol/L (137-145); Total Iron Binding Capacity 252 ug/dL (261-462); Total Protein 6.4 g/dL (6.3-8.2); Transferrin 202 mg/dL (206-381)
[2024-12-24 19:12] LABS: Potassium 5.8 mmol/L (3.4-5.1)
[2024-12-24 19:23] LABS: Vitamin D 25 Hydroxy (D3) 31.1 ng/mL (30.0-100.0)
[2024-12-24 19:29] LABS: Free T4, Direct Thyroxine 1.10 ng/dL (0.78-2.19)
[2024-12-24 19:43] LABS: Thyroid Stimulating Hormone 3.95 uIU/mL (0.47-4.68)
[2024-12-24 20:02] LABS: Vitamin B12 691 pg/mL (239-931)
== END ==
PROVIDERS: Family Provider Family Medicine; PCP Family Medicine; Visit Provider Family Medicine
DX: E53.8 Deficiency of other specified B group vitamins (principal); E03.9 Hypothyroidism, unspecified; I25.10 Atherosclerotic heart disease of native coronary artery without angina pectoris; I73.9 Peripheral vascular disease, unspecified; R79.89 Other specified abnormal findings of blood chemistry; I10 Essential (primary) hypertension; D64.9 Anemia, unspecified; E11.9 Type 2 diabetes mellitus without complications
CPT/HCPCS: 80053; 82306; 82607; 83036; 83540; 83550; 84439; 84443; 85025

== ENCOUNTER → 2024-12-30 16:28 | Outpatient (CLI) | payer MEDICARE, SELFPAY ==
[2024-12-30 16:59] LABS: Reticulocyte Count, Percent 0.8 % (0.9-2.6)
== END ==
PROVIDERS: PCP Family Medicine; Referring Provider Family Medicine; Visit Provider Family Medicine
DX: D64.9 Anemia, unspecified (principal); E78.2 Mixed hyperlipidemia; I10 Essential (primary) hypertension
CPT/HCPCS: 36415; 82668; 85045